=== PATIENT | male | born 1940 | race Caucasian/White ===

== ENCOUNTER 2022-07-24 07:21 | Observation (INO) | payer MEDICARE, SELFPAY ==
[2022-07-24] VITALS (12 sets, daily range): BP systolic 133–164; BP diastolic 60–89; PULSE 51–76; RESP 16–19; TEMP 36.2–36.9; O2SAT 99–100
--- NOTE | ~2022-07-24 | MR_ITS ---
EXAMINATION: MR brain/brain stem wo/w con DATE: 07/24/2022 18:19 INDICATION: Stroke with confusion and weakness. TECHNIQUE: Magnetic resonance imaging (MRI) of the brain and brainstem was performed without and with 11 mL Multihance intravenous contrast. Sequences included sagittal and axial T1-weighted SE, axial d iffusion-weighted FS SE, axial 3D SWAN, axial T2-weighted FLAIR, and axial T2-weighted FSE. Postcontr ast axial and coronal T1-weighted SE was obtained. Apparent diffusion coefficient (ADC) maps were cre ated. COMPARISON: CT and CT angiogram dated 07/24/2022 FINDINGS: Small region of encephalomalacia consistent with chronic infarct in the right parietal temporal occip ital region. Additional small old lacunar infarcts in the left cerebellar hemisphere and in the left basal ganglia. There are no areas of restricted diffusion to suggest acute infarction. No intracrania l hemorrhage or abnormal intracranial mass lesion. Small amount of scattered nonspecific increased T2 -weighted signal intensity in the cerebral white matter, predominantly involving the deep and periven tricular white matter which is within normal limits for age. There are no intraparenchymal signal abn ormalities seen on the other pulse sequences. Symmetric prominence of the sulci and ventricles consis tent with mild age-appropriate diffuse cerebral volume loss. There are no abnormal extra-axial fluid collections. Flow voids are seen in the cerebral arteries on the T2-weighted sequences consistent wit h their expected patency. Changes of bilateral intraocular lens replacement. Visualized orbits and s oft tissues are unremarkable. There are no areas of abnormal enhancement on the post contrast images. IMPRESSION: 1. No acute intracranial process. 2. Old infarcts at the left basal ganglia, left cerebellar hemisphere and right temporal occipital re gion. 3. Age-related changes including mild diffuse volume loss and nonspecific mild scattered white matter T2 hyperintensity consistent with chronic small vessel ischemic disease. Reviewed, dictated and finalized at location A. OR SOFTWARE DEVELOPER IMPRESSION: 1. No acute intracranial process. 2. Old infarcts at the left basal ganglia, left cerebellar hemisphere and right temporal occipital region. 3. Age-related changes including mild diffuse volume loss and nonspecific mild scattered white matter T2 hyperintensity consistent with chronic small vessel i schemic disease.
--- NOTE | ~2022-07-24 | CT_ITS ---
CT ANGIOGRAM NECK AND HEAD History: Confusion, weakness. Technique: Serial spiral axial images through the head and neck were obtained during arterial phase I V injection of 100 cc of Omnipaque 350. 3-D postprocessing and MIP images were then reconstructed on the remote workstation. Dose reduction technique was used on this scan by utilizing automated exposur e control and iterative reconstruction technique. The dose-length product (DLP) was 857.22 mGy-cm. CTA neck findings: Bilateral vertebral bodies are patent. Bilateral common carotid, internal carotid , and external carotid arteries are patent. There is large calcified plaque at the proximal right int ernal carotid artery, with probable high-grade stenosis. There are mild calcified plaques the proxima l left internal carotid artery with minimal stenotic change. The proximal right internal carotid susan ry demonstrates 85% stenosis relative to the normal distal artery lumen diameter. The proximal left i nternal carotid artery demonstrates 10% stenosis relative to the normal distal artery lumen diameter. CTA head findings: Distal vertebral arteries, basilar artery, and posterior cerebral arteries are pat ent. Distal internal carotid arteries, middle cerebral arteries, anterior cerebral arteries are paten t. There is atherosclerotic calcification the cavernous portions of the distal internal carotid arter ies. No high-grade stenosis. No large vessel occlusion or aneurysm. Impression: High-grade (85%) stenosis at the proximal right internal carotid artery. Minimal stenotic record changer (10% stenosis) at the proximal left internal carotid artery. No large vessel occlusion or aneurysm. Reviewed, dictated and finalized at [facility]. R BALLAST MACHINE OPERATOR Impression: High-grade (85%) stenosis at the proximal right internal carotid artery. Minimal stenotic record changer (10% stenosis) at the proximal left internal carot id artery. No large vessel occlusion or aneurysm.
--- NOTE | ~2022-07-24 | CT_ITS ---
EXAMINATION: CT brain wo con DATE: 07/24/2022 07:40 INDICATION: Altered mental status. TECHNIQUE: Computed tomography (CT) of the head was performed without intravenous contrast. The mA wa s adjusted according to patient size. Iterative reconstruction technique was employed. The dose-lengt h product was 605.33 mGy-cm. COMPARISON: None FINDINGS: There is a small old infarct in left cerebellum. There is an old infarct in right temporal occipital region. There is an old lacunar infarct in the left basal ganglia. There are scattered area s of low attenuation in the cerebral white matter, which is within normal limits for the patient's ag e. There is no intracranial hemorrhage, acute infarction, or abnormal intracranial mass lesion. There is ex vacuo dilatation of trigone of right lateral ventricle. There are likely changes of ocular virgil s replacement surgeries. There is mild mucosal thickening in the paranasal sinuses. The mastoid air c ells are normal. IMPRESSION: 1. Old infarcts involving left cerebellum, right temporal occipital region, and the left basal gangli a. Reviewed, dictated and finalized at location A. MOBILE LIBRARIAN IMPRESSION: 1. Old infarcts involving left cerebellum, right temporal occipital region, and the left basal ganglia.
--- NOTE | ~2022-07-24 | XR_ITS ---
EXAMINATION: XR chest 1V DATE: 07/24/2022 07:45 INDICATION: Altered mental status. TECHNIQUE: A single frontal view of the chest was obtained. COMPARISON: Chest single view 08/06/2010 FINDINGS: There is mild atelectasis in the lower lung zones. No pleural effusion or pneumothorax. The heart size is normal. There is a left shoulder arthroplasty. There are changes of vertebroplasty at one level. IMPRESSION: 1. Mild atelectasis in the lower lung zones. Reviewed, dictated and finalized at location A. INERY ENGINEER
--- NOTE | 2022-07-24 08:02 | ED.GENADULT ---
HPI - General Adult General Chief complaint: Altered Mental Status Stated complaint: AMS Time Seen by Provider: 07/24/22 07:26 History of Present Illness HPI narrative: 82-year-old male presenting to the emergency department for evaluation of altered mental status. [facility] reported the patient did have increased confusion and difficulty ambulating this morning. Patient reports he is normally ANO x4. Patient was ANO x2 upon arrival to the ED. Nursing states patient is normally able to walk with a walker but was unable to get out of bed today. Patient was also reportedly attempting to secure his dentures with superglue. Patient's son is present with him in the emergency department and states he feels that his father is not at his baseline. Patient denies any complaints at this time. Patient denies any numbness or weakness. Patient denies any chest pain or shortness of breath. Patient denies any associated abdominal or urinary pain. Related Data Home Medications Medication Instructions Recorded Confirmed atorvastatin 40 mg tablet 40 mg PO DAILY 07/24/22 07/24/22 clopidogrel 75 mg tablet 75 mg PO DAILY 07/24/22 07/24/22 diphenhydramine HCl 25 mg capsule 25 mg PO QID PRN Itching 07/24/22 07/24/22 (Allergy (diphenhydramine)) docusate sodium 100 mg capsule 100 mg PO BID 07/24/22 07/24/22 famotidine 20 mg tablet 20 mg PO BID 07/24/22 07/24/22 finasteride 5 mg tablet 5 mg PO DAILY 07/24/22 07/24/22 guaifenesin 100 mg/5 mL oral 100 mg PO Q4H PRN Cough 07/24/22 07/24/22 liquid (Chest Congestion Relief) hydrocodone 5 mg-acetaminophen 325 1 tablet PO PRN 07/24/22 07/24/22 mg tablet lisinopril 5 mg tablet 5 mg PO DAILY 07/24/22 07/24/22 loratadine 10 mg tablet 5 mg PO DAILY 07/24/22 07/24/22 melatonin 5 mg tablet 5 mg PO HS 07/24/22 07/24/22 metformin 500 mg tablet 500 mg PO HS 07/24/22 07/24/22 metoprolol tartrate 25 mg tablet 25 mg PO DAILY 07/24/22 07/24/22 rnmpukzy-gqpksgjb-acrf 8 mg-folic 1 tablet PO DAILY 07/24/22 07/24/22 ac 400 mcg-vit K 10 mcg chew tablet (Centrum Chewables) nortriptyline 25 mg capsule 25 mg PO BID 07/24/22 07/24/22 polyvinyl alcohol 1.4 % eye drops 1 drp EACH EYE BID PRN Dry Eye(S) 07/24/22 07/24/22 (Artificial Tears (polyvinyl alcohol)) rivastigmine tartrate 3 mg capsule 9.5 mg DAILY 07/24/22 07/24/22 tamsulosin 0.4 mg capsule 0.4 mg PO DAILY 07/24/22 07/24/22 Allergies Allergy/AdvReac Type Severity Reaction Status Date / Time No Known Allergies Allergy Mild Verified 07/24/22 07:32 Review of Systems Review of Systems: CONSTITUTIONAL: Denies fever, chills, or sweats. EYES: Denies visual changes, redness, or discharge. ENT: Denies rhinorrhea, congestion, sore throat, or otalgia. CARDIOVASCULAR: Denies chest pain, palpitations, or edema. RESPIRATORY: Denies cough or dyspnea. GASTROINTESTINAL: Denies abdominal pain, nausea, vomiting, or diarrhea. GENITOURINARY: Denies dysuria or hematuria. SKIN: Denies rash or itching. MUSCULOSKELETAL: Denies back pain, joint pain, or myalgia. NEUROLOGIC: Increased confusion and difficulty with ambulation PMFSH Past Medical History Medical History (Updated 07/24/22 @ 13:05 by Dariela Velazquez PA-C) Anxiety Cardiac tamponade due to viral pericarditis (10/2003) Status post pericardiocentesis. Coronary artery disease [place] in 2007 status post stent to LAD. Depression Nephrolithiasis Type 2 diabetes mellitus Vertebral fracture Surgical History Surgical History (Updated 07/24/22 @ 13:05 by Dariela Velazquez PA-C) History of appendectomy History of cardiac catheterization History of colonoscopy with polypectomy History of coronary artery stent placement History of cystoscopy History of hernia repair 1 with mesh. History of repair of left rotator cuff x2 History of repair of right rotator cuff History of ureter stent Family History Family History Mother Carcinoma of col
[2022-07-24 08:21] LABS: Basophils Percent Auto 0.3 % (0.2-1.2); Eosinophils Absolute Auto 0.2 K/mm3 (0-0.3); Eosinophils Percent Auto 1.7 % (0-4.4); Hematocrit 38.7 % (42.0-52.0); Hemoglobin 12.5 g/dL (14.0-18.0); Immature Granulocyte Absolute 0.04 K/mm3 (0.00-0.031); Immature Granulocyte Percent A 0.4 % (0-0.5); Lymphocytes Absolute Auto 1.27 K/mm3 (0.9-3.2); Lymphocytes Percent Auto 11.3 % (18.3-44.2); Mean Corpuscular HGB Conc 32.3 g/dl (32-36); Mean Corpuscular Hemoglobin 32.6 pg (26-34); Mean Platelet Volume 11.6 fl (7.4-10.4); Monocytes Absolute Auto 1.1 K/mm3 (0.1-0.6); Monocytes Percent Auto 9.4 % (2.6-8.5); Neutrophils Absolute Auto 8.6 K/mm3 (1.3-6.7); Neutrophils Percent Auto 76.9 % (45.5-73.1); Platelet Count Result 150 k/mm3 (150-375); Red Blood Count 3.83 M/mm3 (4.6-6.20); Red Cell Distribution Width 13.8 % (11.5-14.5); White Blood Count 11.2 K/mm3 (4.5-10.0)
[2022-07-24 08:22] LABS: Appearance Urine Clear (Clear); Bilirubin Urine Negative (Negative); Blood Urine Negative (Negative); Color Urine Yellow (Yellow); Glucose Urine UA Negative (Negative); Ketones Urine Negative (Negative); Leukocyte Esterase Ur Negative LEU/UL (Negative); Nitrate Urine Negative (Negative); Protein Urine Negative (Negative); Specific Grav Ur 1.009 (1.001-1.035); pH Urine 7.5 (5.0-9.0)
[2022-07-24 08:31] LABS: Alanine Aminotransferase 23 U/L (6-50); Albumin Level 3.9 g/dL (3.5-5.1); Alkaline Phosphatase 87 U/L (38-126); Anion Gap 4 mmol/L (8-16); Aspartate Amino Transferase 28 U/L (17-59); Bilirubin,Total 0.7 mg/dL (0.2-1.3); Blood Urea Nitrogen 16 mg/dL (9-20); Calcium 8.6 mg/dL (8.4-10.2); Carbon Dioxide 31 mmol/L (22-30); Chloride 106 mmol/L (98-107); Estimated CRCL calculation 60 ml/min; Estimated Glomerular Filt Rate > 60; Glucose 84 mg/dL (65-110); Potassium 4.1 mmol/L (3.4-5.0); Sodium 141 mmol/L (137-145)
[2022-07-24 08:34] LABS: Add Urine Microscopic? NO
[2022-07-24 08:57] LABS: Influenza A QL RT-PCR Negative (Negative); Influenza B QL RT-PCR Negative (Negative); RSV RNA, RT-PCR Negative (Negative); SARS-CoV-2 RNA PCR Negative
--- NOTE | 2022-07-24 13:20 | PCSTNOTE ---
Please refer to the Bedside Swallow Evaluation in the EMR. Please note, silent aspiration cannot be ruled out at bedside.
--- NOTE | 2022-07-24 13:25 | ADMGEN ---
This patient, Ilan Camejo, was admitted to [facility] Room 323-01. Patient/family oriented to hospital policies and general routines including ID bracelet, bed and alarms, visiting hours, pain management, procedures, bathroom and other care routines, personal items, smoking policy, room service/diet, and visiting hours. Information on how to activate the Rapid Response Team has been discussed. Patient/Family are encouraged to report perceived risks to care and to ask questions if they do not understand what they are told or what they should do.
--- NOTE | 2022-07-24 13:30 | PM.IMHP ---
H&P: HPI History of Present Illness Date/Time: 07/24/22 13:30 Chief Complaint: Confusion. Narrative: This is a very pleasant 82-year-old male with coronary artery disease status post myocardial infarction with history of stent to the LAD in 2007, pericarditis with tamponade in October 2003 status post pericardiocentesis, hypertension, hyperlipidemia, dementia, benign prostatic hyperplasia, and diabetes who presented to the emergency department via EMS for evaluation of confusion. The patient provides the following history. He does suffer from short-term memory loss but is alert and oriented x4 at the time my evaluation and in fact he is a pretty good historian. Yesterday he admits that he was feeling a bit disoriented, for instance he was confused on whether was day or night and he tried to put his dentures and with super glue. Today he was feeling weak and could barely get himself out of bed and he was brought in for evaluation. Aside from an increase in urination the last couple of days, he has no current complaints. He specifically denies fever, chills, sweats, headache, vertigo, focal weakness, paresthesias, facial droop, difficulty speaking and swallowing, chest pain, shortness a breath, cough, nausea, vomiting, diarrhea, and dysuria. He has not been started on any new medications recently that he can recall. He used to take hydrocodone at nighttime but is not been receiving that at [place] the last few months and that he has not been getting. He was afebrile on arrival to the emergency department with stable vital signs. Pertinent labs include a WBC count of 11.2, hemoglobin 12.5, MCV 101, normal electrolytes, BUN 16, creatinine 0.70, normal LFTs. Urinalysis was unremarkable. He was negative for influenza, RSV, and COVID. Brain CT showed old infarcts involving left cerebellum, right temporal occipital region, and left basal ganglia. CTA of the head and neck showed high-grade (85%) stenosis at the proximal right internal carotid artery and minimal stenotic change at the proximal left internal carotid artery with no large vessel occlusion or aneurysm. Chest x-ray showed mild atelectasis in the lower lung zones. He is being admitted in this setting for further workup of the transient confusion. Review of Systems Review of Systems: Twelve systems were reviewed and are negative except for as per HPI. [facility] Past Medical History Medical History (Updated 07/24/22 @ 19:35 by Dariela Velazquez PA-C) Anxiety Benign prostatic hyperplasia Cardiac tamponade due to viral pericarditis (10/2003) Status post pericardiocentesis. 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 Coronary artery disease [place] in 2007 status post stent to LAD. Depression Hypertension Nephrolithiasis Stenosis of right internal carotid artery High-grade stenosis (85%) of right internal carotid artery on CTA of the head and neck in July 2022. Type 2 diabetes mellitus Vertebral fracture Surgical History Surgical History (Updated 07/24/22 @ 13:05 by Dariela Velazquez PA-C) History of appendectomy History of cardiac catheterization History of colonoscopy with polypectomy History of coronary artery stent placement History of cystoscopy History of hernia repair 1 with mesh. History of repair of left rotator cuff x2 History of repair of right rotator cuff History of ureter stent Family History Family History Mother Carcinoma of colon Social History Social History (Updated 07/24/22 @ 19:29 by Dariela Velazquez PA-C) Social History: Surrogate medical decision maker: Cindy Almaguer, daughter. Code status: Full code. Smoking status: Former smoker Tobacco type: cigars Alcohol intake: current Substance use: never Lack of Transportation: No Lack of Food: Never True Current Housing: [place]
[2022-07-24] MEDS: ASPIRIN 81 MG CHEWABLE TABLET PO (14:07)
--- NOTE | 2022-07-24 19:25 | ECG_ITS ---
Measurements Intervals [place] Rate: 55 P: -7 FL: 201 QRS: -38 QRSD: 113 T: -1 QT: 450 QTc: 433 Interpretive Statements SINUS BRADYCARDIA LEFT AXIS DEVIATION BORDERLINE AV CONDUCTION DELAY INTRAVENTRICULAR CONDUCTION DELAY LEFT VENTRICULAR HYPERTROPHY BORDERLINE T WAVE ABNORMALITY- INFERIOR LEADS BASELINE ARTIFACT- I, II, III, AVR, AVL, AVF, V1 BORDERLINE ECG NO PREVIOUS ECG AVAILABLE FOR COMPARISON Electronically Signed On 07-24-2022 21:03:58 INDUSTRIAL RELATIONS REPRESENTATIVE by Siddhartha Patel D.O.
[2022-07-24 20:26] LABS: Glucose Point of Care 103 mg/dl (65-105)
[2022-07-24] MEDS: MELATONIN 5 MG TABLET PO (20:30)
[2022-07-24] MEDS: FAMOTIDINE 20 MG TABLET PO (21:32)
[2022-07-24] MEDS: NORTRIPTYLINE HCL 25 MG CAPSULE PO (21:32)
[2022-07-24 21:54] LABS: Hemoglobin A1C 5.4 % (<5.7)
[2022-07-24 22:14] LABS: Iron 54 ug/dL (49-181)
[2022-07-24 22:24] LABS: Percent Iron Saturation 23 % (20-50)
[2022-07-24 22:46] LABS: Thyroid Stimulating Hormone Reflex 0.811 uIU/mL (0.465-4.68)
[2022-07-24 23:03] LABS: Folic Acid 15.9 ng/mL (2.76->20)
[2022-07-25] VITALS (8 sets, daily range): BP systolic 119–124; BP diastolic 62–65; PULSE 56–67; RESP 16–18; TEMP 36–36.1; O2SAT 96–98
[2022-07-25 07:38] LABS: Glucose Point of Care 94 mg/dl (65-105)
[2022-07-25] MEDS: ASPIRIN 81 MG ENTERIC TABLET PO (08:04)
[2022-07-25] MEDS: ATORVASTATIN 40 MG TABLET PO (08:05)
[2022-07-25] MEDS: DOCUSATE SODIUM 100 MG CAPSULE PO (08:05)
[2022-07-25] MEDS: CLOPIDOGREL BISULFATE 75 MG TABLET PO (08:05)
[2022-07-25] MEDS: METOPROLOL TARTRATE 25 MG TABLET PO (08:06)
[2022-07-25] MEDS: lisinopriL 5 MG TABLET PO (08:06)
[2022-07-25] MEDS: FINASTERIDE 5 MG TABLET PO (08:06)
[2022-07-25] MEDS: FAMOTIDINE 20 MG TABLET PO (08:06)
[2022-07-25] MEDS: LORATADINE 5 MG TABLET PO (08:06)
[2022-07-25] MEDS: MULTIVITAMIN HEMATINIC (*BKC) TABLET 1 TABLET PO (08:07)
[2022-07-25] MEDS: TAMSULOSIN HCL 0.4 MG CAPSULE PO (08:07)
[2022-07-25] MEDS: NORTRIPTYLINE HCL 25 MG CAPSULE PO (08:07)
[2022-07-25 11:18] LABS: Glucose Point of Care 123 mg/dl (65-105)
--- NOTE | 2022-07-25 12:15 | PM.DS ---
DS: Admitting Diagnosis Discharge Date 07/25/22 1215 Admitting Diagnosis TIA DS: Discharge Diagnosis Discharge Diagnosis (1) Transient confusion: Code(s): R41.0 - Disorientation, unspecified Status: Acute (2) Stenosis of right internal carotid artery: Code(s): I65.21 - Occlusion and stenosis of right carotid artery Status: Acute (3) Generalized weakness: Code(s): R53.1 - Weakness Status: Acute (4) Type 2 diabetes mellitus: Code(s): E11.9 - Type 2 diabetes mellitus without complications Status: Acute (5) Hypertension: Code(s): I10 - Essential (primary) hypertension Status: Acute (6) Coronary artery disease: Code(s): I25.10 - Atherosclerotic heart disease of [place] coronary artery without angina pectoris Status: Acute (7) Benign prostatic hyperplasia: Code(s): N40.0 - Benign prostatic hyperplasia without lower urinary tract symptoms Status: Acute Plan The patient presented to the emergency department for evaluation of confusion which seems to have resolved and weakness. Labs, imaging, EKG, and all reports were personally reviewed. Etiology of the transient confusion is not entirely clear, he does report frequent urination but is urinalysis is unremarkable. In fact there is no history or evidence to suggest underlying infection. Brain CT did not show any acute findings though did note previous strokes and TIA/CVA is included in the differential diagnosis. No focal deficits were noted on exam today and he is alert and oriented x4 at the time my evaluation. He does have dementia which may very well be the cause of the intermittent confusion. He has not been started on any new medications recently. Given high-grade stenosis in the right internal carotid artery on CTA of the neck, a brain MRI has been ordered to rule out CVA. Continue clopidogrel, aspirin, and atorvastatin which he has been taking at home. He will need outpatient vascular referral given high-grade stenosis of the right internal carotid artery depending on MRI. PT/OT consult could reports of weakness. Blood pressures were reviewed and they are stable. He has mild macrocytic anemia and iron studies as well as B12 and folates have been ordered for further evaluation. Random glucose is well within normal limits; hold metformin and she received IV contrast. Continue tamsulosin and bladder scan to rule out retention given patient reports of frequent urination. Home medications will be reviewed and resumed as appropriate. Brain MRI found old stroke, however no acute intracranial abnormalities DS: Summary Hospital Course Hospital Course: Patient is an 82-year-old male with a past medical history of SD with stent placement, pericarditis, cardiac tamponade, hypertension, hyperlipidemia, dementia, BPH and diabetes who presented to the ED for evaluation of confusion. Patient was noted to be confusion was unable to get out of bed. Patient is currently A&O x4. Before arrival patient was noted to be trying to put in his dentures with super glue and just did know where he was or what was going on. CTA of the head and neck did show 85% stenosis of the right internal carotid artery and 10% on the left. His head CT was negative for any acute findings however did show old infarcts in the having the left cerebellum, left temporal occipital region, left basal ganglia. Brain MRI was negative for any new strokes her abnormalities. Neurology was consulted and patient will be able to follow up as an outpatient in 6 weeks. Also called the [facility] and did talk to Dr. Malik from [facility] about the condition and he stated that the patient can follow-up as an outpatient as this would be more for elective just be showed the patient is on Plavix, aspirin, atorvastatin. Spoke with the patient's family Varghese and Lonnie about the patient's current findings and conditions. Will give them the information to call and make a
== END 2022-07-25 15:05 ==
LOC: ANHED 10:21 → ANH3MEDSUR 10:59
PROVIDERS: Physician Assistant; Admitting Provider Internal Medicine; Emergency Provider Emergency Medicine; PCP Family Medicine Sports Medicine; Visit Provider Chiropractor
DX: R41.0 Disorientation, unspecified (principal); I65.21 Occlusion and stenosis of right carotid artery; R53.1 Weakness; E11.9 Type 2 diabetes mellitus without complications; J98.11 Atelectasis; I10 Essential (primary) hypertension; I25.10 Atherosclerotic heart disease of native coronary artery without angina pectoris; Z95.5 Presence of coronary angioplasty implant and graft; N40.0 Benign prostatic hyperplasia without lower urinary tract symptoms; F41.9 Anxiety disorder, unspecified; Z20.822 Contact with and (suspected) exposure to COVID-19; R05.9 Cough, unspecified; L29.9 Pruritus, unspecified; F03.90 Unspecified dementia, unspecified severity, without behavioral disturbance, psychotic disturbance, mood disturbance, and anxiety; R90.82 White matter disease, unspecified; F32.A Depression, unspecified; E78.5 Hyperlipidemia, unspecified; I25.2 Old myocardial infarction; F10.90 Alcohol use, unspecified, uncomplicated; Z87.442 Personal history of urinary calculi; Z87.891 Personal history of nicotine dependence; Z86.73 Personal history of transient ischemic attack (TIA), and cerebral infarction without residual deficits; Z79.02 Long term (current) use of antithrombotics/antiplatelets; Z79.891 Long term (current) use of opiate analgesic; Z79.84 Long term (current) use of oral hypoglycemic drugs; Z79.899 Other long term (current) drug therapy
CPT/HCPCS: 36415; 70450; 70496; 70498; 70553; 71045; 80053; 81003; 82607; 82728; 82746; 82948; 83036; 83540; 83550; 84443; 85025; 87040; 87637; 92610; 93005; 97161; 99285; A9270; A9577; G0378; Q9967

== ENCOUNTER 2023-12-05 13:42 | Inpatient (IN) | payer MEDICARE, SELFPAY ==
[2023-12-05] VITALS (19 sets, daily range): BP systolic 95–117; BP diastolic 50–58; PULSE 79–88; RESP 16–26; TEMP 36.1–37.3; O2SAT 89–97; BMI 21.4
--- NOTE | ~2023-12-05 | XR_ITS ---
EXAMINATION: XR chest 2V DATE: 12/05/2023 14:47 INDICATION: Cough and fever TECHNIQUE: frontal and lateral views of the chest were obtained. COMPARISON: Chest radiograph dated 07/24/2022 FINDINGS: Calcified nodule at the right costophrenic angle consistent with sequela of old granulomatous disease . No significant change in minimal streaky atelectasis/scarring at the bilateral lung bases. No new a irspace opacities, pulmonary edema, pleural effusion or pneumothorax. The cardiomediastinal silhouett e is normal. Reverse left total shoulder arthroplasty.] The right femoral head consistent with prior rotator cuff repair. Chronic L1 compression fracture with prior vertebroplasty. IMPRESSION: 1. Unchanged minimal streaky bibasilar atelectasis/scarring. Reviewed, dictated and finalized at location A.
--- NOTE | ~2023-12-05 | CT_ITS ---
EXAMINATION: CT diagnostic chest wo con DATE: 12/05/2023 17:36 INDICATION: fever, productive cough TECHNIQUE: Computed tomography (CT) of the chest was performed without intravenous contrast. Addition al 3D reconstructions utilizing coronal maximum intensity projection (MIP) were performed. Automated exposure control and iterative reconstruction technique were employed. The dose-length prod uct was 284.52 mGy-cm. COMPARISON: None FINDINGS: Mild dependent atelectasis in the bilateral lower lobes with additional discoid atelectasis/scarring at the lingula and right middle lobe. Calcified right lower lobe nodules along with calcified right h ilar lymph nodes consistent with old granulomatous disease. 4 mm noncalcified in the inferior right u pper lobe. No pneumonia, pulmonary edema or pleural effusion. Heart size normal. Atherosclerotic triston nary artery calcifications. Aortic valve calcification. No pericardial effusion. Thoracic aorta is no rmal in caliber. No pathologically enlarged thoracic lymphadenopathy. Partially visualized left total shoulder arthroplasty. Splenic calcifications consistent with old granulomatous disease. Couple gall stones in the otherwise normal gallbladder. Chronic T12 burst fracture with prior vertebroplasty. IMPRESSION: 1. Mild scattered atelectasis in bilateral lower lungs. No evident pneumonia or other acute cardiopul monary disease. 2. Indeterminate 4 mm right upper lobe pulmonary nodule. If the patient is low risk for lung cancer, no follow-up is needed. If the patient is high risk (i.e., history of smoking or asbestos or signific ant radiation exposure), optional follow-up chest CT could be considered at 12 months. Reviewed, dictated and finalized at location A. IMPRESSION: 1. Mild scattered atelectasis in bilateral lower lungs. No evident pneumonia or other acute cardiopulmonary disease. 2. Indeterminate 4 mm right upper lobe pulmonary nodule. If the patient is low risk for lung cancer, no follow-up is needed. If the patient is high risk (i.e. , history of smoking or asbestos or significant radiation exposure), optional f ollow-up chest CT could be considered at 12 months.
--- NOTE | 2023-12-05 14:17 | ECG_ITS ---
Test Date: 2023-12-05 14:59:52 Measurements Intervals [place] Rate: 77 P: 11 [place]: 198 QRS: -38 QRSD: 118 T: 18 QT: 382 QTc: 434 Interpretive Statements SINUS RHYTHM WITH OCCASIONAL SUPRAVENTRICULAR PREMATURE COMPLEXES LEFT AXIS DEVIATION INTRAVENTRICULAR CONDUCTION DELAY LEFT VENTRICULAR HYPERTROPHY PATTERN CONSISTENT WITH PULMONARY DISEASE BASELINE ARTIFACT- I, II, III, AVR, V1 BORDERLINE ECG No previous ECG available for comparison Electronically Signed On 12-05-2023 15:12:11 CDT by Siddhartha Patel D.O.
--- NOTE | 2023-12-05 14:41 | ED.URI ---
HPI - URI/Sore Throat General Chief Complaint: Upper Respiratory Infection <Jennifer Vargas PA-C - Last Filed: 12/05/23 20:08> Stated Complaint: cough,sore throat <SHAHZAD Sanchez Last Filed: 12/05/23 20:08> Time Seen by Provider: 12/05/23 14:16 <SHAHZAD Sanchez Last Filed: 12/05/23 20:08> Source: patient and family <Jennifer Vargas PA-C - Last Filed: 12/05/23 20:08> Mode of arrival: ambulatory <SHAHZAD Sanchez Last Filed: 12/05/23 20:08> Limitations: dementia <SHAHZAD Sanhcez Last Filed: 12/05/23 20:08> History of Present Illness HPI Narrative: This is a 83 year old male that presents to the ER for cold symptoms. Present over the last 2 days. Reports fever, cough, congestion, sore throat, shortness of breath. He lives in a Memory care unit that have had a couple of COVID cases. His oxygen saturation was in the upper 80s at the facility. He was brought in for evaluation by his son. <Jennifer Vargas PA-C - Last Filed: 12/05/23 20:08> Related Data Home Medications: Home Medications Medication Instructions Recorded Confirmed atorvastatin 40 mg tablet 40 mg PO DAILY 07/24/22 12/05/23 clopidogrel 75 mg tablet 75 mg PO DAILY 07/24/22 12/05/23 docusate sodium 100 mg capsule 100 mg PO BID PRN Constipation 07/24/22 12/05/23 famotidine 20 mg tablet 20 mg PO BID 07/24/22 12/05/23 finasteride 5 mg tablet 5 mg PO DAILY 07/24/22 12/05/23 guaifenesin 100 mg/5 mL oral 100 mg PO Q4H PRN Cough 07/24/22 12/05/23 liquid (Chest Congestion Relief) hydrocodone 5 mg-acetaminophen 325 1 tablet PO HS 07/24/22 12/05/23 mg tablet lisinopril 5 mg tablet 5 mg PO DAILY 07/24/22 12/05/23 loratadine 10 mg tablet 5 mg PO DAILY 07/24/22 12/05/23 melatonin 5 mg tablet 5 mg PO HS 07/24/22 12/05/23 metformin 500 mg tablet 500 mg PO HS 07/24/22 12/05/23 metoprolol tartrate 25 mg tablet 25 mg PO BID 07/24/22 12/05/23 cjoswzsj-ulnoskel-heyv 8 mg-folic 1 tablet PO DAILY 07/24/22 12/05/23 ac 400 mcg-vit K 10 mcg chew tablet (Centrum Chewables) nortriptyline 25 mg capsule 25 mg PO BID 07/24/22 12/05/23 polyvinyl alcohol 1.4 % eye drops 1 drp EACH EYE BID PRN Dry Eye(S) 07/24/22 12/05/23 (Artificial Tears (polyvinyl alcohol)) rivastigmine tartrate 3 mg capsule 3 mg PO BID 07/24/22 12/05/23 tamsulosin 0.4 mg capsule 0.4 mg PO DAILY 07/24/22 12/05/23 acetaminophen 500 mg tablet 1,000 mg PO Q6H PRN Pain 12/05/23 12/05/23 cyanocobalamin (vitamin B-12) 1,000 mcg PO DAILY 12/05/23 12/05/23 1,000 mcg tablet (Vitamin B-12) fluticasone propionate 50 1 spray intranasal QAM 12/05/23 12/05/23 mcg/actuation nasal spray,suspension (Flonase Allergy Relief) loperamide 2 mg capsule 2 mg PO Q6H PRN Diarrhea 12/05/23 12/05/23 memantine 10 mg tablet 10 mg PO BID 12/05/23 12/05/23 ondansetron 4 mg disintegrating 4 mg PO Q6H PRN Nausea And Vomiting 12/05/23 12/05/23 tablet vit C 250 mg-vit E 90 mg-zinc 40 1 tablet PO BID 12/05/23 12/05/23 mg-copper 1 [id number]-ioyuts capsule (PreserVision AREDS-2) <Jennifer Vargas PA-C - Last Filed: 12/05/23 20:08> Allergies/Adverse Reactions: Allergies Allergy/AdvReac Type Severity Reaction Status Date / Time No Known Allergies Allergy Mild Verified 12/05/23 14:58 <Jennifer Vargas PA-C - Last Filed: 12/05/23 20:08> Review of Systems Review of Systems: CONSTITUTIONAL: Reports fever ENT: Reports congestion, sore throat CARDIOVASCULAR: Reports edema. Denies chest pain RESPIRATORY: Reports cough. Denies dyspnea. <Jennifer Vargas PA-C - Last Filed: 12/05/23 20:08> All systems reviewed & are unremarkable except as noted in HPI and below <Jennifer Vargas PA-C - Last Filed: 12/05/23 20:08> [facility], [facility] Past Medical History Medical History: Medical History (Updated 12/08/23 @ 10:35 by Ailyn Lomeli MD) Anxiety Benign prostatic hyperplasia Cardiac tamponade due to viral pericarditis (10/2003) Status post pericar
[2023-12-05 15:21] LABS: Basophils Percent Auto 0.4 % (0.2-1.2); Eosinophils Absolute Auto 0.3 K/mm3 (0-0.3); Eosinophils Percent Auto 3.5 % (0-4.4); Hematocrit 34.9 % (42.0-52.0); Hemoglobin 11.6 g/dL (14.0-18.0); Immature Granulocyte Absolute 0.03 K/mm3 (0.00-0.031); Immature Granulocyte Percent A 0.3 % (0-0.5); Immature Platelet Fraction Pct 4.8 % (0.9-11.2); Lymphocytes Absolute Auto 0.54 K/mm3 (0.9-3.2); Lymphocytes Percent Auto 5.8 % (18.3-44.2); Mean Corpuscular HGB Conc 33.2 g/dl (32-36); Mean Corpuscular Hemoglobin 33.1 pg (26-34); Mean Corpuscular Volume 99.7 fl (80-100); Monocytes Absolute Auto 0.9 K/mm3 (0.1-0.6); Monocytes Percent Auto 10.1 % (2.6-8.5); Neutrophils Absolute Auto 7.5 K/mm3 (1.3-6.7); Neutrophils Percent Auto 79.9 % (45.5-73.1); Platelet Count Result 147 k/mm3 (150-375); Red Cell Distribution Width 14.2 % (11.5-14.5); White Blood Count 9.4 K/mm3 (4.5-10.0)
[2023-12-05 15:28] LABS: Lactic Acid Reflex 1.9 mmol/L (0.7-2.0)
[2023-12-05 15:33] LABS: Alanine Aminotransferase 14 U/L (6-50); Albumin Level 3.5 g/dL (3.5-5.1); Alkaline Phosphatase 88 U/L (38-126); Anion Gap 8 mmol/L (4-12); Aspartate Amino Transferase 24 U/L (17-59); Bilirubin,Total 0.6 mg/dL (0.2-1.3); Blood Urea Nitrogen 16 mg/dL (9-20); CRP 4.2 mg/dL (<1.0); Calcium 8.1 mg/dL (8.4-10.2); Carbon Dioxide 26 mmol/L (22-30); Chloride 102 mmol/L (98-107); Estimated CRCL calculation 57 ml/min; Estimated Glomerular Filt Rate > 60; Glucose 115 mg/dL (65-110); Potassium 4.4 mmol/L (3.4-5.0); Sodium 136 mmol/L (137-145)
[2023-12-05 15:39] LABS: NT Pro B Type Natriuretic Pept 579 pg/mL (19.9-100)
[2023-12-05 15:43] LABS: Strep Group A RT-PCR NOT DETECTED (Negative)
[2023-12-05 15:55] LABS: Influenza A QL RT-PCR Negative (Negative); Influenza B QL RT-PCR Negative (Negative); RSV RNA, RT-PCR Negative (Negative); SARS-CoV-2 RNA PCR Negative (Negative)
[2023-12-05] MEDS: IPRATROPIUM 0.5 MG/ALBUTEROL SULFATE 2.5 MG AMPUL.NEB 3 ML INHALATION ×3 (16:16→20:29)
[2023-12-05] MEDS: methylPREDNISolone SOD SUCC 125 MG VIAL IV PUSH (16:56)
--- NOTE | 2023-12-05 19:17 | PC.NURSE ---
Bedside report given to Trisha PLUNKETT, all questions answered.
--- NOTE | 2023-12-05 21:57 | ADMGEN ---
This patient, Ilan Camejo, was admitted to [facility] Surg Room 307-01. Patient/family oriented to hospital policies and general routines including ID bracelet, bed and alarms, visiting hours, pain management, procedures, bathroom and other care routines, personal items, smoking policy, room service/diet, and visiting hours. Information on how to activate the Rapid Response Team has been discussed. Patient/Family are encouraged to report perceived risks to care and to ask questions if they do not understand what they are told or what they should do.
[2023-12-06] VITALS (13 sets, daily range): BP systolic 110–131; BP diastolic 53–61; PULSE 70–93; RESP 16–20; TEMP 36.1–36.4; O2SAT 92–98
--- NOTE | 2023-12-06 | ECHO_ITS ---
Patient Info Name: Ilan Camejo Age: 83 years : 1940 Gender: Male Ht: 70 in Wt: 149 lbs BSA: 1.82 m2 HR: 91 bpm BP: 113 / 53 mmHg Heart Rhythm: Sinus Rhythm Technical Quality: Fair Exam Date: 12/06/2023 11:21 AM Exam Location: Echo Lab Patient Status: Inpatient Admit Date: 12/06/2023 Staff Ordering Physician: Lyn Slaughter DO [employer] Equipment Tender: Maura Villarreal RDCS Attending Provider: Ailyn Lomeli MD Referring Physician: Kasandra REAGAN; Exam Type: CA echo dop color flow w con Study Info Indications - lower extremity swelling, hypoxia Complete two-dimensional, color flow and Doppler transthoracic echocardiogram is performed with contrast to opacify the left ventricle and to improve the deliniation of the left ventricle endocardial borders. Contrast/Agitated Saline Contrast/Ag. Saline: Definity Amount: 3.00 ml Administered By: Maura Villarreal RDCS Existing IV Access: Yes IV Access Condition: patent with no signs of infiltration Summary 1. Definity contrast used to improve visualization. 2. Left ventricular hypertrophy with normal systolic function and grade 1 diastolic noncompliance. 3. Trileaflet aortic valve with aortic stenosis, moderate to severe. Left Ventricle Left ventricular chamber dimension is normal. Left ventricular systolic function is normal, estimated at 60-65%. There is mild concentric increased left ventricular wall thickness. The left ventricular diastolic function is grade I diastolic dysfunction. Right Ventricle Right ventricular chamber dimension is normal. Left Atria Left atrial chamber dimension is mildly enlarged. Right Atria Right atrial chamber dimension is normal. Aortic Valve The aortic valve is trileaflet. There is moderate to severe aortic valve stenosis with a peak velocity of 318.48 cm/s, mean gradient of 20 mmHg, and aortic valve area of 0.96 cm2. Pulmonic Valve The pulmonic valve is normal. Mitral Valve The mitral valve has normal leaflets. Tricuspid Valve The tricuspid valve leaflets are normal. Pericardium/Pleural The pericardium appears normal. Aorta The aortic root size at the sinus of Valsalva is normal. Left Ventricular Outflow Tract Name Value Normal LVOT 2D LVOT Diameter 2.02 cm LVOT Doppler LVOT Peak Gradient 3 mmHg LVOT Mean Gradient 2 mmHg LVOT VTI 15.26 cm LVOT VTI/AV VTI Ratio 0.30 LVOT Stroke Volume 49.04 ml LVOT CO 4.41 l/min LVOT CI 2.42 L/min/m2 Pulmonic Valve Name Value Normal RVOT Doppler RVOT Peak Gradient 3 mmHg PV Doppler PV Peak Gradient 4 mmHg Mitral Valve
--- NOTE | 2023-12-06 02:32 | PM.IMHP ---
H&P: HPI History of Present Illness Date/Time: 12/06/23 04:00 Chief Complaint: Cold symptoms Narrative: 83-year-old male with a past medical history of coronary artery disease status post stent, pericarditis with tamponade 2003, CVA, dementia, essential hypertension BPH and diabetes presented to the ER by his son from the patient's [facility] care facility due to cough shortness of breath and fever. Patient's son reported the patient has been having upper respiratory symptoms for 2 days. There have been multiple cases of COVID at the patient's [facility]. Evidently when the patient was sat up on the side of the bed at the snf his oxygen saturations dropped into the Upper 80s. COVID and flu PCR performed in the ER was negative. Chest x-ray and CT of chest without contrast demonstrated atelectasis bilateral lung zones without evidence of acute infectious process. Patient's white count was normal. Patient did have hypoxia on exertion in the ER sats down to 89% before the patient could even stand up out of bed. He received 2 nebulizer treatments and steroid therapy without improvement in his symptoms. He was subsequently admitted for observation and treatment. The patient himself reports that he care and because he was confused. He stated he had no difficulties with breathing but he was noted be coughing. When I asked him how long he had been coughing he stated that he been coughing for a month. He denies feeling short of breath. He essentially has no complaints. Patient is noted to have lower extremity swelling he is unsure if this is changed from his baseline. His abdomen is distended but soft. He reports that his abdomen is fat because he likes to eat. The patient is noted to have some mild JVD and loud murmur that radiates across his chest. Patient has been afebrile since presentation to our facility but reportedly had a fever and received Tylenol at [facility]. Patient is alert oriented to person and place. He states that he does not know what the month or year is he usually has his calendar in his room that he can look at that tells him the date. He denies orthopnea but is not the best historian. Review of Systems Review of Systems: ROS unobtainable: Yes unobtainable due to medical condition (Dementia) [facility] Past Medical History Medical History (Updated 12/06/23 @ 06:50 by Lyn Slaughter DO) Anxiety Benign prostatic hyperplasia Cardiac tamponade due to viral pericarditis (10/2003) Status post pericardiocentesis. 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 Coronary artery disease [place] in 2007 status post stent to LAD. Dementia Depression Hypertension Nephrolithiasis Stenosis of right internal carotid artery High-grade stenosis (85%) of right internal carotid artery on CTA of the head and neck in July 2022. Type 2 diabetes mellitus Vertebral fracture Surgical History Surgical History (Updated 12/06/23 @ 06:39 by Lyn Slaughter DO) History of appendectomy History of cardiac catheterization History of colonoscopy with polypectomy History of coronary artery stent placement History of cystoscopy History of hernia repair 1 with mesh. History of repair of left rotator cuff x2 History of repair of right rotator cuff History of ureter stent Status post cataract extraction of both eyes with insertion of intraocular lens Family History Family History Mother Carcinoma of colon Social History Social History (Updated 12/06/23 @ 02:50 by Lyn Slaughter DO) Social History: Code status: DNR/DNI Healthcare power of claim attorney: Lonnie Camejo Smoking status: Former smoker Tobacco type: cigarettes Second hand tobacco smoke exposure: Yes Alcohol intake: never Substance use: never Substance use type: does not use
--- NOTE | 2023-12-06 07:38 | PC.NURSE ---
I have reviewed the charting and in agreement of the findings. Will continue to monitor
[2023-12-06] MEDS: IPRATROPIUM 0.5 MG/ALBUTEROL SULFATE 2.5 MG AMPUL.NEB 3 ML INHALATION ×3 (08:08→20:58)
[2023-12-06] MEDS: TAMSULOSIN HCL 0.4 MG CAPSULE PO (08:51)
[2023-12-06] MEDS: ASPIRIN 81 MG ENTERIC TABLET PO (08:51)
[2023-12-06] MEDS: CYANOCOBALAMIN 1,000 MCG TABLET 1000 MCG PO (08:51)
[2023-12-06] MEDS: ATORVASTATIN 40 MG TABLET PO (08:52)
[2023-12-06] MEDS: MEMANTINE 10 MG TABLET PO ×2 (08:52→21:10)
[2023-12-06] MEDS: FINASTERIDE 5 MG TABLET PO (08:52)
[2023-12-06] MEDS: lisinopriL 5 MG TABLET PO (08:52)
[2023-12-06] MEDS: predniSONE 20 MG TABLET 60 MG PO (08:52)
[2023-12-06] MEDS: FAMOTIDINE 20 MG TABLET PO ×2 (08:52→21:10)
[2023-12-06] MEDS: OPTI-GEN TAB 1 TABLET PO ×2 (08:52→16:34)
[2023-12-06] MEDS: HEPARIN SODIUM 5,000 UNITS/ML VIAL 5000 UNITS SUB-Q ×2 (08:52→21:10)
[2023-12-06] MEDS: CLOPIDOGREL BISULFATE 75 MG TABLET PO (08:52)
[2023-12-06] MEDS: METOPROLOL TARTRATE 25 MG TABLET PO ×2 (08:52→21:10)
--- NOTE | 2023-12-06 10:06 | P.PNCROSS_ITS ---
Event Note Event Note Event Note: Patient seen and examined. He is a very pleasant although confused elderly gen tleman. He wishes to be DNR. He denies any she is of breath. He had still a persistent cough without sputum production. He is unable to take deep breaths for the exam without coughing violently. Chloraseptic lozenge has been provided as requested by the nurse this morning. Also ordered incentive spirometer with the patient's bilateral atelectasis. Ordered respiratory viral pathogen panel. Continue scheduled nebs and prednisone. BNP slightly elevated. Pending surface echocardiogram in the setting of weight gain and lower extremity edema. Unable to assess for bibasilar rales as the pa chastity has cough every time he takes a deep breath. Unclear the status of the patient's reported diabetes. Last A1c did not indicate diabetes. He has a metformin. Check repeat HbA1c. Trend CRP for tomorrow. Check procalcitonin tomorrow. DNR. Heparin subQ 5000 units b.i.d.. Stable on medical floor.
[2023-12-06] MEDS: PERFLUTREN LIPID MICROSPHERES 1.5 ML VIAL DILUTED TO 10 ML TOTAL VOLUME IV PUSH (11:52)
[2023-12-06] MEDS: NORTRIPTYLINE HCL 25 MG CAPSULE PO ×2 (12:58→21:11)
[2023-12-06] MEDS: RIVASTIGMINE TARTRATE 1.5 MG CAPSULE 3 MG PO ×2 (12:58→21:10)
[2023-12-06] MEDS: LORATADINE 5 MG TABLET PO (12:58)
[2023-12-06] MEDS: FLUTICASONE PROPIONATE 0.05% NA SPR 16 GM BTL (*BKC) 1 SPRAY NASAL (12:58)
--- NOTE | 2023-12-06 13:04 | IVDEFINITY ---
Prior to administration of IV Definity the patient was educated on the risks and benefits of the imaging enhancing agent including potential adverse side effects. The patient verbalized understanding. Allergies were verified. No exclusion criteria were identified and at least one of the following inclusion criteria were met: 1) physician request, 2) patient technically difficult to image (per the [place] [employer] guidelines of two or more segments not discernable within the apical view), or 3) questionable left ventricular function. ?
[2023-12-06] MEDS: MELATONIN 5 MG TABLET PO (21:10)
[2023-12-06] MEDS: HYDROcodone/acetaminophen (*CRX) 5-325 MG TABLET 1 TAB PO (21:11)
[2023-12-07] VITALS (15 sets, daily range): BP systolic 106–146; BP diastolic 53–67; PULSE 65–84; RESP 14–20; TEMP 36.2–36.6; O2SAT 91–94
[2023-12-07] MEDS: IPRATROPIUM 0.5 MG/ALBUTEROL SULFATE 2.5 MG AMPUL.NEB 3 ML INHALATION ×4 (03:04→21:34)
[2023-12-07 06:36] LABS: Basophils Percent Auto 0.1 % (0.2-1.2); Hematocrit 32.5 % (42.0-52.0); Hemoglobin 10.8 g/dL (14.0-18.0); Immature Granulocyte Absolute 0.09 K/mm3 (0.00-0.031); Immature Granulocyte Percent A 0.6 % (0-0.5); Lymphocytes Absolute Auto 0.92 K/mm3 (0.9-3.2); Mean Corpuscular HGB Conc 33.2 g/dl (32-36); Mean Corpuscular Hemoglobin 33.2 pg (26-34); Mean Platelet Volume 11.2 fl (7.4-10.4); Monocytes Absolute Auto 1.3 K/mm3 (0.1-0.6); Monocytes Percent Auto 8.4 % (2.6-8.5); Neutrophils Percent Auto 84.9 % (45.5-73.1); Platelet Count Result 148 k/mm3 (150-375); Red Blood Count 3.25 M/mm3 (4.6-6.20); Red Cell Distribution Width 14.6 % (11.5-14.5); White Blood Count 15.4 K/mm3 (4.5-10.0)
[2023-12-07 06:46] LABS: Anion Gap 8 mmol/L (4-12); Blood Urea Nitrogen 21 mg/dL (9-20); CRP 2.4 mg/dL (<1.0); Calcium 8.2 mg/dL (8.4-10.2); Carbon Dioxide 25 mmol/L (22-30); Chloride 104 mmol/L (98-107); Estimated CRCL calculation 60 ml/min; Estimated Glomerular Filt Rate > 60; Glucose 134 mg/dL (65-110); Magnesium 1.8 mg/dL (1.6-2.3); Potassium 3.8 mmol/L (3.4-5.0); Sodium 137 mmol/L (137-145)
[2023-12-07 07:04] LABS: Procalcitonin 0.1 ng/mL
[2023-12-07 08:00] LABS: Hemoglobin A1C 6.6 % (<5.7)
[2023-12-07] MEDS: CLOPIDOGREL BISULFATE 75 MG TABLET PO (08:34)
[2023-12-07] MEDS: RIVASTIGMINE TARTRATE 1.5 MG CAPSULE 3 MG PO ×2 (08:34→21:19)
[2023-12-07] MEDS: NORTRIPTYLINE HCL 25 MG CAPSULE PO ×2 (08:34→21:20)
[2023-12-07] MEDS: OPTI-GEN TAB 1 TABLET PO ×2 (08:34→17:24)
[2023-12-07] MEDS: ATORVASTATIN 40 MG TABLET PO (08:34)
[2023-12-07] MEDS: CYANOCOBALAMIN 1,000 MCG TABLET 1000 MCG PO (08:34)
[2023-12-07] MEDS: HEPARIN SODIUM 5,000 UNITS/ML VIAL 5000 UNITS SUB-Q ×2 (08:34→21:20)
[2023-12-07] MEDS: FAMOTIDINE 20 MG TABLET PO ×2 (08:35→21:20)
[2023-12-07] MEDS: ASPIRIN 81 MG ENTERIC TABLET PO (08:35)
[2023-12-07] MEDS: LORATADINE 5 MG TABLET PO (08:35)
[2023-12-07] MEDS: METOPROLOL TARTRATE 25 MG TABLET PO ×2 (08:35→21:20)
[2023-12-07] MEDS: TAMSULOSIN HCL 0.4 MG CAPSULE PO (08:35)
[2023-12-07] MEDS: FINASTERIDE 5 MG TABLET PO (08:36)
[2023-12-07] MEDS: lisinopriL 5 MG TABLET PO (08:36)
[2023-12-07] MEDS: MEMANTINE 10 MG TABLET PO ×2 (08:36→21:19)
[2023-12-07] MEDS: predniSONE 20 MG TABLET 60 MG PO (08:36)
[2023-12-07] MEDS: FLUTICASONE PROPIONATE 0.05% NA SPR 16 GM BTL (*BKC) 1 SPRAY NASAL (09:11)
--- NOTE | 2023-12-07 09:42 | PM.IMPN ---
Progress Note: A&P Assessment and Plan (1) Bilateral lower extremity edema: Code(s): R60.0 - Localized edema Status: Acute (2) Dementia: Qualifiers: Dementia type: unspecified type Dementia severity: moderate Dementia behavioral or psychological symptom: without behavioral, psychotic, or mood disturbance or anxiety Qualified Code(s): F03.B0 - Unspecified dementia, moderate, without behavioral disturbance, psychotic disturbance, mood disturbance, and anxiety Code(s): F03.90 - Unspecified dementia, unspecified severity, without behavioral disturbance, psychotic disturbance, mood disturbance, and anxiety Status: Acute (3) Acute bronchitis: Qualifiers: Bronchitis organism: unspecified organism Qualified Code(s): J20.9 - Acute bronchitis, unspecified Code(s): J20.9 - Acute bronchitis, unspecified Status: Acute (4) Wheezing: Code(s): R06.2 - Wheezing Status: Acute (5) Hypoxia: Code(s): R09.02 - Hypoxemia Status: Acute (6) Lung nodule: Code(s): R91.1 - Solitary pulmonary nodule Status: Acute Plan H&P via Lyn Slaughter MD 83-year-old male with a past medical history of coronary artery disease status post stent, former smoker, pericarditis with tamponade 2003, CVA, dementia, essential hypertension, BPH and NIDDM presented to the ER by his son from the patient's memory care facility due to cough shortness of breath and fever. Patient's son reported the patient has been having upper respiratory symptoms for 2 days. There have been multiple cases of COVID at the [facility]'s [facility]. Evidently when the patient was sat up on the side of the bed at the retirement his oxygen saturations dropped into the Upper 80s. COVID and flu PCR performed in the ER was negative. Chest x-ray and CT of chest without contrast demonstrated atelectasis bilateral lung zones without evidence of acute infectious process. Patient's white count was normal. Patient did have hypoxia on exertion in the ER sats down to 89% before the patient could even stand up out of bed. He received 2 nebulizer treatments and steroid therapy without improvement in his symptoms. He was subsequently admitted for observation and treatment. He stated he had no difficulties with breathing but he was noted be coughing. When I asked him how long he had been coughing he stated that he been coughing for a month. He denies feeling short of breath. He essentially has no complaints. Patient is noted to have lower extremity swelling he is unsure if this is changed from his baseline. His abdomen is distended but soft. He reports that his abdomen is fat because he likes to eat. The patient is noted to have some mild JVD and loud murmur that radiates across his chest. Patient has been afebrile since presentation to our facility but reportedly had a fever and received Tylenol at [facility]. Patient is alert oriented to person and place. He states that he does not know what the month or year is he usually has his calendar in his room that he can look at that tells him the date. He denies orthopnea but is not the best historian. December 06: His symptomatology is improved although upon deep breathing he still has a nonproductive cough. He believes the lozenges have helped him greatly, continue that. Continue prednisone and scheduled nebs, continue Flonase spray q.a.m. he likely has acute bronchitis/bronchiolitis/URI with his hypoxia on admission and coarse breath sounds now improved with breathing treatments and prednisone. Full respiratory pathogen panel pending. Quad viral screen on admission negative. Elevated WBC at 15,000 and procalcitonin 0.1 today however that is likely due to the use of steroid. CRP down to 2.4 from 4.2. No bandemia. Fever. Trend white count in the morning and at procalcitonin as well. Continue [employer] antihypertensives, hemoglobin A1c 6.6%. Accu-Cheks Surface echoc
[2023-12-07 16:39] LABS: Glucose Point of Care 182 mg/dl (65-105)
[2023-12-07 20:34] LABS: Glucose Point of Care 223 mg/dl (65-105)
[2023-12-07] MEDS: HYDROcodone/acetaminophen (*CRX) 5-325 MG TABLET 1 TAB PO (21:19)
[2023-12-07] MEDS: MELATONIN 5 MG TABLET PO (21:20)
[2023-12-08] VITALS (8 sets, daily range): BP systolic 108–146; BP diastolic 64–79; PULSE 65–104; RESP 14–18; TEMP 36.2–36.4; O2SAT 91–100
[2023-12-08] MEDS: IPRATROPIUM 0.5 MG/ALBUTEROL SULFATE 2.5 MG AMPUL.NEB 3 ML INHALATION ×2 (02:27→07:23)
[2023-12-08 06:53] LABS: Basophils Percent Auto 0.1 % (0.2-1.2); Hematocrit 34.7 % (42.0-52.0); Hemoglobin 11.6 g/dL (14.0-18.0); Immature Granulocyte Percent A 0.6 % (0-0.5); Lymphocytes Percent Auto 8.5 % (18.3-44.2); Mean Corpuscular HGB Conc 33.4 g/dl (32-36); Mean Corpuscular Hemoglobin 33.6 pg (26-34); Mean Corpuscular Volume 100.6 fl (80-100); Mean Platelet Volume 11.4 fl (7.4-10.4); Monocytes Absolute Auto 1.3 K/mm3 (0.1-0.6); Neutrophils Absolute Auto 13.6 K/mm3 (1.3-6.7); Neutrophils Percent Auto 82.8 % (45.5-73.1); Platelet Count Result 169 k/mm3 (150-375); Red Blood Count 3.45 M/mm3 (4.6-6.20); Red Cell Distribution Width 14.6 % (11.5-14.5); White Blood Count 16.4 K/mm3 (4.5-10.0)
[2023-12-08 07:13] LABS: Anion Gap 5 mmol/L (4-12); Blood Urea Nitrogen 18 mg/dL (9-20); Calcium 8.4 mg/dL (8.4-10.2); Carbon Dioxide 32 mmol/L (22-30); Chloride 103 mmol/L (98-107); Estimated CRCL calculation 59 ml/min; Estimated Glomerular Filt Rate > 60; Glucose 94 mg/dL (65-110); Magnesium 1.8 mg/dL (1.6-2.3); Potassium 3.4 mmol/L (3.4-5.0); Sodium 140 mmol/L (137-145)
[2023-12-08 08:13] LABS: Glucose Point of Care 103 mg/dl (65-105)
[2023-12-08] MEDS: FINASTERIDE 5 MG TABLET PO (08:45)
[2023-12-08] MEDS: ATORVASTATIN 40 MG TABLET PO (08:46)
[2023-12-08] MEDS: CYANOCOBALAMIN 1,000 MCG TABLET 1000 MCG PO (08:46)
[2023-12-08] MEDS: LORATADINE 5 MG TABLET PO (08:46)
[2023-12-08] MEDS: predniSONE 20 MG TABLET 60 MG PO (08:46)
[2023-12-08] MEDS: NORTRIPTYLINE HCL 25 MG CAPSULE PO (08:46)
[2023-12-08] MEDS: FAMOTIDINE 20 MG TABLET PO (08:46)
[2023-12-08] MEDS: TAMSULOSIN HCL 0.4 MG CAPSULE PO (08:46)
[2023-12-08] MEDS: ASPIRIN 81 MG ENTERIC TABLET PO (08:46)
[2023-12-08] MEDS: OPTI-GEN TAB 1 TABLET PO (08:46)
[2023-12-08] MEDS: METOPROLOL TARTRATE 25 MG TABLET PO (08:46)
[2023-12-08] MEDS: FLUTICASONE PROPIONATE 0.05% NA SPR 16 GM BTL (*BKC) 1 SPRAY NASAL (08:47)
[2023-12-08] MEDS: CLOPIDOGREL BISULFATE 75 MG TABLET PO (08:47)
[2023-12-08] MEDS: MEMANTINE 10 MG TABLET PO (08:47)
[2023-12-08] MEDS: lisinopriL 5 MG TABLET PO (08:47)
[2023-12-08] MEDS: RIVASTIGMINE TARTRATE 1.5 MG CAPSULE 3 MG PO (08:47)
[2023-12-08 09:04] LABS: Procalcitonin 0.1 ng/mL
--- NOTE | 2023-12-08 10:34 | PM.DS ---
DS: Admitting Diagnosis Discharge Date December 08, 2023 Admitting Diagnosis Shortness of breath and fever DS: Discharge Diagnosis Discharge Diagnosis (1) Acute bronchitis: Qualifiers: Bronchitis organism: unspecified organism Qualified Code(s): J20.9 - Acute bronchitis, unspecified Code(s): J20.9 - Acute bronchitis, unspecified Status: Acute (2) Dementia: Qualifiers: Dementia type: unspecified type Dementia severity: moderate Dementia behavioral or psychological symptom: without behavioral, psychotic, or mood disturbance or anxiety Qualified Code(s): F03.B0 - Unspecified dementia, moderate, without behavioral disturbance, psychotic disturbance, mood disturbance, and anxiety Code(s): F03.90 - Unspecified dementia, unspecified severity, without behavioral disturbance, psychotic disturbance, mood disturbance, and anxiety Status: Acute (3) Leukocytosis: Code(s): D72.829 - Elevated white blood cell count, unspecified Status: Acute (4) Hypoxia: Code(s): R09.02 - Hypoxemia Status: Acute (5) Wheezing: Code(s): R06.2 - Wheezing Status: Acute DS: Summary Hospital Course Hospital Course: H&P via Lyn Slaughter MD 83-year-old male with a past medical history of coronary artery disease status post stent, former smoker, pericarditis with tamponade 2003, CVA, dementia, essential hypertension, BPH and NIDDM presented to the ER by his son from the patient's memory care facility due to cough shortness of breath and fever. Patient's son reported the patient has been having upper respiratory symptoms for 2 days. There have been multiple cases of COVID at the patient's [facility]. Evidently when the patient was sat up on the side of the bed at the alf his oxygen saturations dropped into the Upper 80s. COVID and flu PCR performed in the ER was negative. Chest x-ray and CT of chest without contrast demonstrated atelectasis bilateral lung zones without evidence of acute infectious process. Patient's white count was normal. Patient did have hypoxia on exertion in the ER sats down to 89% before the patient could even stand up out of bed. He received 2 nebulizer treatments and steroid therapy without improvement in his symptoms. He was subsequently admitted for observation and treatment. He stated he had no difficulties with breathing but he was noted be coughing. When I asked him how long he had been coughing he stated that he been coughing for a month. He denies feeling short of breath. He essentially has no complaints. Patient is noted to have lower extremity swelling he is unsure if this is changed from his baseline. His abdomen is distended but soft. He reports that his abdomen is fat because he likes to eat. The patient is noted to have some mild JVD and loud murmur that radiates across his chest. Patient has been afebrile since presentation to our facility but reportedly had a fever and received Tylenol at [facility]. Patient is alert oriented to person and place. He states that he does not know what the month or year is he usually has his calendar in his room that he can look at that tells him the date. He denies orthopnea but is not the best historian. This patient had transient hypoxia in route to the hospital. While admitted to the hospital he did not have hypoxia. He did have severe dry coughing with coarse breath sounds and wheezing. Treated for URI/acute bronchitis with Chloraseptic lozenges which he believed helped him greatly. He also received prednisone 60 mg p.o. q.day. on 12/08/2023 the patient is symptomatology is greatly improved and he believes he is ready for discharge back to assisted living. Has a persistent leukocytosis which could be due to steroid use. His procalcitonin unremarkable. He will have a repeat CBCD in 5 days after another 2 days of prednisone 40 mg p.o. q.day. this result be routed to his primary care physicia
--- NOTE | 2023-12-08 11:04 | PC.NURSE ---
Per patient's step-daughter no need to transmit new [facility] to [facility]
--- NOTE | 2023-12-08 11:58 | PC.NURSE ---
Called [facility] x2 to give report to receiving nurse. No answer and no voicemail set up available.
[2023-12-08 12:33] LABS: SARS-CoV-2 RNA PCR Negative (Negative)
[2023-12-11 16:28] LABS: Adenovirus DNA Not Detected (Not Detected); Chlamydophila pneumoniae Not Detected (Not Detected); Coronavirus 229E Not Detected (Not Detected); Coronavirus HKU1 Not Detected (Not Detected); Coronavirus NL63 Not Detected (Not Detected); Coronavirus OC43 Not Detected (Not Detected); Human Metapneumovirus Not Detected (Not Detected); Human Parainfluenza Virus 1 Not Detected (Not Detected); Human Parainfluenza Virus 2 Not Detected (Not Detected); Human Parainfluenza Virus 3 Not Detected (Not Detected); Human Parainfluenza Virus 4 Not Detected (Not Detected); Human RSV B Not Detected (Not Detected); Influenza A Not Detected (Not Detected); Influenza B Not Detected (Not Detected); Mycoplasma pneumoniae Not Detected (Not Detected); Rhinovirus/Enterovirus Detected (Not Detected)
== END 2023-12-08 12:55 | DRG 203 ==
LOC: ANHED 15:29 → ANH3MEDSUR 19:24
PROVIDERS: Admitting Provider General Practice; Emergency Provider Physician Assistant; PCP Family Medicine Sports Medicine; Visit Provider General Practice
DX: J20.9 Acute bronchitis, unspecified (principal); D72.829 Elevated white blood cell count, unspecified; E11.9 Type 2 diabetes mellitus without complications; F03.B0 Unspecified dementia, moderate, without behavioral disturbance, psychotic disturbance, mood disturbance, and anxiety; I25.10 Atherosclerotic heart disease of native coronary artery without angina pectoris; I25.2 Old myocardial infarction; I10 Essential (primary) hypertension; N40.0 Benign prostatic hyperplasia without lower urinary tract symptoms; Z66 Do not resuscitate; Z11.52 Encounter for screening for COVID-19; Z20.822 Contact with and (suspected) exposure to COVID-19; Z87.891 Personal history of nicotine dependence; Z86.73 Personal history of transient ischemic attack (TIA), and cerebral infarction without residual deficits; Z95.5 Presence of coronary angioplasty implant and graft; Z79.02 Long term (current) use of antithrombotics/antiplatelets; Z79.84 Long term (current) use of oral hypoglycemic drugs; Z90.49 Acquired absence of other specified parts of digestive tract; Z98.41 Cataract extraction status, right eye; Z98.42 Cataract extraction status, left eye; Z96.1 Presence of intraocular lens; Z96.0 Presence of urogenital implants
CPT/HCPCS: 36415; 71046; 71250; 80048; 80053; 82948; 83036; 83605; 83735; 83880; 84145; 85025; 85055; 86140; 87633; 87635; 87637; 87651; 93005; 94640; 96372; 96374; 97161; 97165; 99285; A9270; C8929; G0378; J1644; J2919; J7512; Q9957